=== PATIENT | male | born 1955 | race Caucasian/White ===

== ENCOUNTER 2018-03-10 05:28 | Day surgery (SDC) | payer BC ==
[~2018-03-10 05:28] MED LIST: Buffered Lidocaine 0.9% SYRIN* 5 ML/SYR SYRINGE INTRADERM ONE
[2018-03-10] MEDS ORDERED: Morphine VIAL* 10 MG/ML 1 ML VIAL ONE (06:14)
[2018-03-10] MEDS ORDERED: ceFAZolin 2 GM PREMIX in ORs 2 GM/50 ML BAG IVPB ONE (06:14)
[2018-03-10] MEDS ORDERED: Morphine PCA ADULT* 5 MG/ML 30 ML ONE (06:18)
[2018-03-10] MEDS ORDERED: fentaNYL* 50 MCG/ML 2 ML VIAL (100 MCG VIAL) ONE ×2 (07:09→07:47)
[2018-03-10] MEDS ORDERED: Propofol* 10 MG/ML 20 ML BTL IV PUSH ONE ×2 (07:09→08:00)
[2018-03-10] MEDS ORDERED: Midazolam* 1 MG/ML 5 ML VIAL (5 MG) ONE (07:09)
[2018-03-10] MEDS ORDERED: Atracurium* 10 MG/ML 10 ML VIAL ONE (07:45)
[2018-03-10] MEDS ORDERED: Succinylcholine* 20 MG/ML 10 ML VIAL ONE (08:00)
[2018-03-10] MEDS ORDERED: Dexamethasone IV* 4 MG/ML 1 ML (4 MG) ONE (08:01)
[2018-03-10] MEDS ORDERED: Ketorolac INJ* 30 MG/ML 1 ML VIAL ONE (08:30)
[2018-03-10] MEDS ORDERED: Ondansetron INJ* 2 MG/ML VIAL ONE (08:30)
[2018-03-10] MEDS ORDERED: oxyCODONE/Acetamin 5/325 MG* TAB PO PRN (08:39)
[2018-03-10] MEDS ORDERED: fentaNYL* 50 MCG/ML 2 ML VIAL (100 MCG VIAL) IV PRN (08:39)
[2018-03-10] MEDS ORDERED: HYDROmorphone INJ1* 1 MG/ML SYRINGE IV PRN ×2 (08:39→08:40)
[2018-03-10] MEDS ORDERED: diPHENhydraMINE IV* 50 MG/ML 1 ml VIAL (BENADRYL) IV PRN (08:39)
[2018-03-10] MEDS ORDERED: Ondansetron INJ* 2 MG/ML VIAL IV PRN (08:40)
[2018-03-10] MEDS ORDERED: DiMENhydriNATE IV* 50 MG/ML VIAL IV PUSH PRN (08:40)
[2018-03-10 10:33] VITALS: BP 148/103
[2018-03-10] MEDS ORDERED: Bupivacaine 0.25% SDV* 30 ML ONE (15:27)
--- NOTE | 2018-03-10 22:23 | OP ---
Amended report to enter date of operation. OPERATIVE REPORT: DATE OF OPERATION: 03/10/18 DATE OF : 57 SURGEON: Madeleine Fry MD MATH AND SCIENCES DEPARTMENT CHAIR: MICHELE Sanchez An support assistant was needed for the entirety of the case to help with positioning, retraction, and utilized throughout all portions of the case. ANESTHESIOLOGIST: Dr. Del Rio. ANESTHESIA: General interscalene block. PRE-OP DIAGNOSIS: Right shoulder complete tear of the rotator cuff with long head of the biceps tendon ruptures. POST-OP DIAGNOSIS: Right shoulder complete tear of the rotator cuff with long head of the biceps tendon ruptures. OPERATIVE PROCEDURE: Right shoulder arthroscopy with: 1. Extensive glenohumeral debridement. 2. Subacromial decompression with acromioplasty. 3. Rotator cuff repair of the supra and in part of the infraspinatus tendon in a double row fashion augmented with REGENETEN patch. COMPLICATIONS: None. ESTIMATED BLOOD LOSS: Minimal. IMPLANTS USED: Two HEALICOIL and 1 Multi-Fix as well as 1 medium size REGENETEN patch. INDICATIONS: Adonis Villegas is a 62-year-old male who was doing [employer] and he felt a pop in his shoulder. He had difficulty raising his arm. An MRI demonstrated full-thickness tear of the rotator cuff. He had previously ruptured his biceps sometime ago. He had failed conservative management and elected to proceed with surgical treatment. Risks and benefits were discussed at length, included but not limited to bleeding; infection; damage to nerves, vessels, surrounding structures; wound nonhealing; persistent pain; need for surgery; scaring; stiffness; incomplete relief of symptoms; and risks of anesthesia. DESCRIPTION OF PROCEDURE: The patient was greeted in the preoperative area by the attending surgeon. Correct extremity was marked. Consent was confirmed. The patient underwent interscalene nerve block by the anesthesiologist after which he was brought back to the operating suite. He was placed in the supine position on the operating room table. He then underwent general anesthesia with endotracheal intubation after which he was placed in the left lateral decubitus position with a axillary roll. All bony prominences were padded. He was secured with a peg board. The right shoulder was draped unsterile with 10 pounds of traction. The right shoulder was then prepped and draped in the usual sterile fashion beginning with chlorhexidine soap, scrub, and alcohol wipe and a final prep with ChloraPrep. After appropriate surgical pause indicating site, side, procedure, administration of antibiotics, the standard posterolateral portal was made sharp with an 11 blade. Scope was introduced into the joint. The joint was examined. The glenohumeral joint had grade 0 to 1 changes. The anterior posterior labrum had unstable fraying. The biceps had already been ruptured. There was abundant synovitis that was present both above anteriorly and above in the interval and then inferior recess which was intact. The subscap was intact. The anterior portal was made in an outside-in fashion. Shaver was used to debride back the abundant synovitis below the anterior, posterior, and superior labrum. There was evidence of full- thickness tear of the supraspinatus tendon with part of the infraspinatus tendon. Once the debridement was completed, attention was directed to the subacromial space. With the scope in the subacromial space lateral portal was made in an outside in fashion. Shaver was used to debride back the abundant bursa that was present. The cuff was visualized, had a full-thickness tear. The undersurface of the acromion was skeletonized using electrocautery device and a small anterolateral spur was appreciated. This was then debrided back using a 4-0 oval sreedhar. After this was done, attention was directed to the cuff. The cuff tendon had a full-thickness tear that was retracted but probably 1 to 2 cm, not to the level of the glenoid. The cuff tissue was then carefully mobilized, this was found to be able to be restored to the footprint. The greater tuberosity was prepared in the usual fashion with the rasp and electrocautery device as well as the 4-0 oval bur. I did a small microfracture as well to allow for bone marrow vent. At this point, the decision was made to try to augment this with a REGENETEN patch to allow for extra healing for the healing properties. REGENETEN patch was brought to the field and then placed under arthroscopic visualization. A size medium patch was chosen, this was then secured medially with tendon tj and laterally with bone tj. This covered the previous repair. The shaver was used to debride back the rotator cuff unstable fraying as well as to allow for good bony bleeding bed. The cuff tendon was then mobilized at this point through 2 separate stab incisions. A 4.75 mm HEALICOIL were then placed with excellent purchase. The patient had excellent quality bone. The sutures were then passed through the tendon in a horizontal mattress configuration, then tied down using arthroscopic knot tying technique. Once these were all tied down this reapproximated the cuff appropriately, brought to the footprint. At this point the sutures were then placed through a Multi-Fix anchor which was then placed for a lateral row fixation with excellent purchase. Final images were obtained. The wounds were copiously irrigated with sterile saline. Portals were closed with 3-0 nylon. Sterile dressings, a Cryo/Cuff, and UltraSling were applied. He was awoken from anesthesia and transferred to the PACU in stable condition. POSTOPERATIVE PLAN: He will be nonweightbearing. He will be in a sling for 6 weeks, he will start therapy in 4 weeks. He will be discharged on pain medications. DVT prophylaxis considered but deferred due to no previous personal or family history. I will see the patient back in 10 to 14 days. [id number]/[facility] #: [id number] QI
== END 2018-03-10 10:39 | disposition home or self-care (01) ==
LOC: OR 05:28
PROVIDERS: ATTEND Orthopaedic Surgery
DX: S46.011A Strain of muscle(s) and tendon(s) of the rotator cuff of right shoulder, initial encounter (principal); S46.111A Strain of muscle, fascia and tendon of long head of biceps, right arm, initial encounter; Y93.B9 Activity, other involving muscle strengthening exercises; Y92.9 Unspecified place or not applicable; G89.18 Other acute postprocedural pain; I10 Essential (primary) hypertension; Z87.891 Personal history of nicotine dependence
CPT/HCPCS: C1713; J0330; J0690; J1100; J1885; J2250; J2270; J2405; J2704; J3010